=== PATIENT | female | born 1965 | race Caucasian/White ===

== ENCOUNTER → 2019-11-30 | Outpatient (CLI) | payer MEDICARE, OTHER ==
[~2019-11-30] MED LIST: ACETAMINOPHEN-1 EAC1 PO; AMITRIPTYLINE H50 M4 PO; ATIVAN0.5 MG PO; AUGMENTIN 875875 MG PO; CIPRO250 M1 PO; HYDROCODON-ACE1 EACH PO; NEURONTIN 300300 M1 PO; TRIPLE ANTIBIOT28 G2 TP; XANAX XR2 MG PO
== END ==
LOC: M.RAD 13:42
DX: Z12.31 Encounter for screening mammogram for malignant neoplasm of breast (principal)